=== PATIENT | male | born 1950 | race Caucasian/White ===

== ENCOUNTER 2022-03-03 11:55 | Emergency (ER) | payer OTHER ==
[~2022-03-03] VITALS: Ht 175.3 cm; Wt 90.7 kg
[2022-03-03 12:52] LABS: Basophils # (auto) 0.1 10 ^3/uL (0-0.2); Basophils % (auto) 0.7 % (0.0-2.0); Eosinophils # (auto) 0.1 10 ^3/uL (0-0.8); Eosinophils % (auto) 0.3 % (0.0-7.0); Hematocrit 38.4 % (41.0-53.0); Hemoglobin 12.8 g/dL (13.5-17.5); Lymphocytes # (auto) 1.4 10 ^3/uL (0.4-5.4); Lymphocytes % (auto) 6.9 % (10.0-50.0); Mean Corpuscular Hemoglobin 30.4 pg (28.0-32.0); Mean Corpuscular Hgb Conc. 33.3 g/dL (32.0-36.0); Mean Corpuscular Volume 91.3 fL (80.0-100.0); Monocytes # (auto) 1.4 10 ^3/uL (0-1.3); Neutrophils % (auto) 85.1 % (37.0-80.0); Red Blood Cells 4.21 10^6/uL (4.5-5.90); Red Cell Distribution Width 14.3 % (11.8-14.3); White Blood Cell 19.9 10^3/uL (4.4-10.8)
[2022-03-03 12:54] LABS: Albumin 1.9 g/dL (3.4-5.0); Calcium 9.1 mg/dL (8.5-10.1); Potassium 3.6 mmol/L (3.5-5.1)
[2022-03-03 12:59] LABS: BUN/Creatinine Ratio 22.1; Total Protein 6.4 g/dL (6.4-8.2)
[2022-03-03] MEDS: AZITHROMYCIN 500MG/ 250ML 250 ML IV ONE (13:26)
[2022-03-03] MEDS: DexAMETHasone SOD PHOS 10MG/1ML VIAL INJ IV ONE (13:26)
[2022-03-03] MEDS: IPRATROPIUM BROM 0.5 MG/2.5ML INH SOL NEB ONE (13:30)
[2022-03-03] MEDS: ALBUTEROL SULF 2.5 MG/0.5ML(0.5%) NEB SOLN NEB ONE (13:30)
[2022-03-03 20:32] VITALS: BP 149/66
== END 2022-03-03 20:51 | disposition short-term general hospital (02) ==
LOC: EDBD 11:55 → ER 11:55
DX: J18.9 Pneumonia, unspecified organism (principal); J44.1 Chronic obstructive pulmonary disease with (acute) exacerbation; R77.8 Other specified abnormalities of plasma proteins; Z20.822 Contact with and (suspected) exposure to COVID-19
CPT/HCPCS: 36415; 71045; 80053; 83880; 84484; 85025; 87426; 93005; 94640; 96365; 96366; 96375; 99291; J0456; J1100; J7644